=== PATIENT | male | born 1940 | race Caucasian/White ===

== ENCOUNTER 2019-03-28 07:12 | Inpatient (IN) | payer SELFPAY ==
[~2019-03-28] VITALS: Ht 172.7 cm; Wt 66.2 kg
[2019-03-28] MEDS ORDERED: SODIUM CHLORIDE 0.9% 1,000 ML IV ONE (09:23)
[2019-03-28 09:38] LABS: BASOPHILS % 0.3 % (0.0-2.0); EOSINOPHILS % 0.1 % (0.0-5.0); HEMATOCRIT. 29.4 % (42.0-52.0); LYMPHOCYTES % 7.4 % (20.0-50.0); MEAN CORPUSCULAR VOLUME 87.6 fL (80.0-94.0); MEAN PLATELET VOLUME 8.2 fl (7.4-10.4); MONOCYTES % 10.5 % (2.0-8.0); NEUTROPHILS % 81.7 % (40.0-76.0); PLATELET 231 x1000/uL (130-400); RED BLOOD CELL COUNT 3.35 mill/uL (4.7-6.1); RED CELL DISTRIBUTION WIDTH 19.2 % (11.6-14.6)
[2019-03-28 09:45] LABS: CHLORIDE 102 mEq/L (98-107)
[2019-03-28 09:47] LABS: INR 1.1; PARTIAL THROMBOPLASTIN TIME 40.4 sec (23.4-31.0); PROTHROMBIN TIME 10.9 sec (9.6-11.0)
[2019-03-28 09:50] LABS: ETHANOL BLOOD < 10 mg/dL
[2019-03-28 10:04] LABS: CLARITY URINE CLOUDY (CLEAR); COLOR URINE DARK YELLOW (YELLOW); KETONES URINE 1+ (NEGATIVE); LEUKOCYTE ESTERASE URINE TRACE (NEGATIVE); NITRITE URINE POSITIVE (NEGATIVE); OCCULT BLOOD URINE 2+ (NEGATIVE); PH URINE 5.5 (4.5-8.0); PROTEIN URINE 2+ (NEGATIVE); SPECIFIC GRAVITY URINE 1.023 (1.005-1.030)
[2019-03-28 10:17] LABS: *AMPHETAMINES SCREEN URINE NEGATIVE (NEGATIVE); *BARBITURATES SCREEN URINE NEGATIVE (NEGATIVE); *BENZODIAZEPINES SCREEN URINE NEGATIVE (NEGATIVE); *COCAINE SCREEN URINE NEGATIVE (NEGATIVE); METHADONE URINE SCREEN NEGATIVE (NEGATIVE); OPIATES URINE SCREEN NEGATIVE (NEGATIVE); PHENCYCLIDINE URINE SCREEN NEGATIVE (NEGATIVE)
[2019-03-28 10:19] LABS: CANNABINOID URINE SCREEN NEGATIVE (NEGATIVE)
[2019-03-28] MEDS ORDERED: ASPIRIN 325MG EC TABLET PO ONE (11:00)
[2019-03-28] MEDS ORDERED: CEFTRIAXONE 1 G PREMIX 50 ML IV ONE (11:00)
[2019-03-28] MEDS ORDERED: CEFTRIAXONE 1,000 MG in DEXTROSE 5% WATER 50 ML IV SCH (11:30)
[2019-03-28] MEDS ORDERED: POTASSIUM CHLORIDE 20MEQ TABLET SR PO ONE (11:45)
[2019-03-28] MEDS ORDERED: DOCUSATE SODIUM 100MG CAPSULE PO PRN (12:30)
[2019-03-28] MEDS ORDERED: ONDANSETRON HCL 4MG/2ML INJ IV PRN (12:30)
[2019-03-28] MEDS ORDERED: CLONIDINE 0.1MG TABLET PO PRN (12:30)
[2019-03-28 13:00] VITALS: BP 129/79
[2019-03-28 15:30] VITALS: BP 132/62
[2019-03-28 16:00] VITALS: BP 139/68
[2019-03-28] MEDS ORDERED: LEVOFLOXACIN 500MG PREMIX 100 ML IV SCH (16:00)
[2019-03-28] MEDS: SODIUM CHLORIDE 0.9% 1,000 ML IV SCH (16:52)
[2019-03-28] MEDS ORDERED: HYDROCODONE/ACETAMINOPHEN 5/325MG TABLET PO PRN (19:45)
[2019-03-28] MEDS: LORAZEPAM 2MG/ML CPJ IV PRN (19:54)
[2019-03-28 20:00] VITALS: BP 107/62
[2019-03-28] MEDS: METOPROLOL TARTRATE 25MG TABLET PO SCH (21:00)
[2019-03-28] MEDS: MORPHINE SULFATE 2 MG/ML CPJ (NOT FOR IM USE) IV PRN (21:23)
[2019-03-29] VITALS (7 sets, daily range): BP systolic 82–145; BP diastolic 43–77
[2019-03-29] MEDS: LORAZEPAM 2MG/ML CPJ IV PRN (02:35)
[2019-03-29] MEDS: ACETAMINOPHEN 325MG TABLET PO PRN (03:25)
[2019-03-29] MEDS: METOPROLOL TARTRATE 25MG TABLET PO SCH ×3 (03:26→20:44)
[2019-03-29] MEDS: SODIUM CHLORIDE 0.9% 1,000 ML IV SCH (04:17)
[2019-03-29 07:37] LABS: HEMATOCRIT. 29.4 % (42.0-52.0); HEMOGLOBIN. 9.9 g/dL (14.0-18.0); MEAN CORPUSCULAR HEMOGLOBIN 29.8 pg (28.0-32.0); MEAN PLATELET VOLUME 8.6 fl (7.4-10.4); PLATELET 201 x1000/uL (130-400); RED BLOOD CELL COUNT 3.34 mill/uL (4.7-6.1); RED CELL DISTRIBUTION WIDTH 19.7 % (11.6-14.6)
[2019-03-29 07:55] LABS: CHLORIDE 106 mEq/L (98-107)
[2019-03-29] MEDS ORDERED: SODIUM CHLORIDE 0.9% 500 ML IV NR ×2 (09:28→10:00)
[2019-03-29] MEDS: MULTIVITAMINS,THER W-MINERALS TABLET PO SCH (10:42)
[2019-03-29] MEDS: THIAMINE HCL 100MG TABLET PO SCH (10:42)
[2019-03-29] MEDS: FOLIC ACID 1MG TABLET PO SCH (10:42)
[2019-03-29] MEDS: ENOXAPARIN 40MG/0.4ML SYR SUBCUT SCH (10:43)
[2019-03-29] MEDS: MIDODRINE HCL 2.5MG TABLET PO SCH ×2 (12:26→17:38)
[2019-03-29 13:00] LABS: PLATELET ESTIMATE NORMAL
[2019-03-29] MEDS ORDERED: POTASSIUM CHLORIDE INJ 40 MEQ in DEXT 5% WATER 250 ML IV NR (13:30)
[2019-03-29] MEDS: LEVOFLOXACIN 500MG PREMIX 100 ML IV SCH (20:43)
[2019-03-30] VITALS: BP 109/59
[2019-03-30 04:00] VITALS: BP 110/71
[2019-03-30 07:56] LABS: CHLORIDE 110 mEq/L (98-107)
[2019-03-30 08:00] VITALS: BP 122/70
[2019-03-30] MEDS: FOLIC ACID 1MG TABLET PO SCH (09:25)
[2019-03-30] MEDS: ENOXAPARIN 40MG/0.4ML SYR SUBCUT SCH (09:25)
[2019-03-30] MEDS: METOPROLOL TARTRATE 25MG TABLET PO SCH ×2 (09:26→19:56)
[2019-03-30] MEDS: MIDODRINE HCL 2.5MG TABLET PO SCH ×2 (09:26→15:53)
[2019-03-30] MEDS: THIAMINE HCL 100MG TABLET PO SCH (09:26)
[2019-03-30] MEDS: MULTIVITAMINS,THER W-MINERALS TABLET PO SCH (09:26)
[2019-03-30] MEDS: ACETAMINOPHEN 325MG TABLET PO PRN ×2 (11:36→19:58)
[2019-03-30 12:00] VITALS: BP 120/77
[2019-03-30 16:00] VITALS: BP 156/82
[2019-03-30] MEDS: LEVOFLOXACIN 500MG PREMIX 100 ML IV SCH (19:55)
[2019-03-30 20:00] VITALS: BP 160/95
[2019-03-31] VITALS: BP 138/84
[2019-03-31] MEDS: SODIUM CHLORIDE 0.9% 1,000 ML IV SCH ×2 (01:39→10:30)
[2019-03-31 04:00] VITALS: BP 133/81
[2019-03-31 08:30] VITALS: BP 154/89
[2019-03-31] MEDS: THIAMINE HCL 100MG TABLET PO SCH (09:02)
[2019-03-31] MEDS: MIDODRINE HCL 2.5MG TABLET PO SCH ×2 (09:02→09:09)
[2019-03-31] MEDS: METOPROLOL TARTRATE 25MG TABLET PO SCH ×2 (09:02→20:26)
[2019-03-31] MEDS: FOLIC ACID 1MG TABLET PO SCH (09:02)
[2019-03-31] MEDS: MULTIVITAMINS,THER W-MINERALS TABLET PO SCH (09:02)
[2019-03-31] MEDS: ENOXAPARIN 40MG/0.4ML SYR SUBCUT SCH (09:03)
[2019-03-31 12:00] VITALS: BP 145/98
[2019-03-31 16:00] VITALS: BP 136/84
[2019-03-31 20:00] VITALS: BP 161/87
[2019-03-31] MEDS: LEVOFLOXACIN 500MG PREMIX 100 ML IV SCH (20:25)
[2019-04-01] VITALS: BP 133/70
[2019-04-01] MEDS: MORPHINE SULFATE 2 MG/ML CPJ (NOT FOR IM USE) IV PRN (00:14)
[2019-04-01 04:00] VITALS: BP 154/78
[2019-04-01 08:00] VITALS: BP 128/70
[2019-04-01] MEDS: METOPROLOL TARTRATE 25MG TABLET PO SCH ×2 (08:01→20:49)
[2019-04-01] MEDS: THIAMINE HCL 100MG TABLET PO SCH (08:02)
[2019-04-01] MEDS: FOLIC ACID 1MG TABLET PO SCH (08:02)
[2019-04-01] MEDS: ENOXAPARIN 40MG/0.4ML SYR SUBCUT SCH (08:02)
[2019-04-01] MEDS: MULTIVITAMINS,THER W-MINERALS TABLET PO SCH (08:02)
[2019-04-01 12:00] VITALS: BP 120/73
[2019-04-01 20:27] VITALS: BP 127/78
[2019-04-01] MEDS: LEVOFLOXACIN 500MG TABLET PO SCH (20:49)
[2019-04-02] VITALS: BP 132/76
[2019-04-02 04:00] VITALS: BP 145/89
[2019-04-02 08:36] VITALS: BP 156/84
[2019-04-02] MEDS: MULTIVITAMINS,THER W-MINERALS TABLET PO SCH (09:21)
[2019-04-02] MEDS: FOLIC ACID 1MG TABLET PO SCH (09:21)
[2019-04-02] MEDS: THIAMINE HCL 100MG TABLET PO SCH (09:22)
[2019-04-02] MEDS: ENOXAPARIN 40MG/0.4ML SYR SUBCUT SCH (09:23)
[2019-04-02] MEDS: METOPROLOL TARTRATE 25MG TABLET PO SCH ×2 (09:23→21:50)
[2019-04-02 13:02] VITALS: BP 147/86
[2019-04-02 16:21] VITALS: BP 139/69
[2019-04-02 20:45] VITALS: BP 148/83
[2019-04-02] MEDS: LEVOFLOXACIN 500MG TABLET PO SCH (21:49)
[2019-04-03 00:16] VITALS: BP 149/75
[2019-04-03] MEDS: ACETAMINOPHEN 325MG TABLET PO PRN (01:01)
[2019-04-03 04:00] VITALS: BP 144/85
[2019-04-03 08:00] VITALS: BP 154/93
[2019-04-03 10:52] VITALS: BP 138/79
[2019-04-03] MEDS: FOLIC ACID 1MG TABLET PO SCH (10:54)
[2019-04-03] MEDS: THIAMINE HCL 100MG TABLET PO SCH (10:54)
[2019-04-03] MEDS: MULTIVITAMINS,THER W-MINERALS TABLET PO SCH (10:54)
[2019-04-03] MEDS: METOPROLOL TARTRATE 25MG TABLET PO SCH ×2 (10:54→20:33)
[2019-04-03] MEDS: ENOXAPARIN 40MG/0.4ML SYR SUBCUT SCH (10:55)
[2019-04-03 12:00] VITALS: BP 122/71
[2019-04-03 20:00] VITALS: BP 133/86
[2019-04-03] MEDS: LEVOFLOXACIN 500MG TABLET PO SCH (20:32)
[2019-04-04] VITALS: BP 151/86
[2019-04-04 04:00] VITALS: BP 137/87
[2019-04-04 08:00] VITALS: BP 134/72
[2019-04-04] MEDS: METOPROLOL TARTRATE 25MG TABLET PO SCH ×2 (08:25→20:49)
[2019-04-04] MEDS: MULTIVITAMINS,THER W-MINERALS TABLET PO SCH (08:25)
[2019-04-04] MEDS: THIAMINE HCL 100MG TABLET PO SCH (08:25)
[2019-04-04] MEDS: FOLIC ACID 1MG TABLET PO SCH (08:25)
[2019-04-04] MEDS: ENOXAPARIN 40MG/0.4ML SYR SUBCUT SCH (08:46)
[2019-04-04 12:00] VITALS: BP 132/68
[2019-04-04 16:00] VITALS: BP 148/76
[2019-04-04] MEDS: ACETAMINOPHEN 325MG TABLET PO PRN (16:57)
[2019-04-04 20:00] VITALS: BP 144/89
[2019-04-04] MEDS: LEVOFLOXACIN 500MG TABLET PO SCH (20:49)
[2019-04-05] VITALS: BP 139/67
[2019-04-05 04:00] VITALS: BP 140/67
[2019-04-05] MEDS: MULTIVITAMINS,THER W-MINERALS TABLET PO SCH (08:56)
[2019-04-05] MEDS: THIAMINE HCL 100MG TABLET PO SCH (08:56)
[2019-04-05] MEDS: FOLIC ACID 1MG TABLET PO SCH (08:57)
[2019-04-05] MEDS: METOPROLOL TARTRATE 25MG TABLET PO SCH ×2 (08:57→20:23)
[2019-04-05] MEDS: ENOXAPARIN 40MG/0.4ML SYR SUBCUT SCH (08:57)
[2019-04-05 15:55] LABS: FOLIC ACID (FOLATE) SERUM >20 ng/mL ng/mL (>5.38)
[2019-04-05 16:06] LABS: VITAMIN B12 SERUM 367 pg/mL (211-911)
[2019-04-05 20:00] VITALS: BP 111/70
[2019-04-06] VITALS: BP 111/70
[2019-04-06 04:00] VITALS: BP 119/57
[2019-04-06 08:00] VITALS: BP 124/74
[2019-04-06] MEDS: FOLIC ACID 1MG TABLET PO SCH (09:15)
[2019-04-06] MEDS: MULTIVITAMINS,THER W-MINERALS TABLET PO SCH (09:15)
[2019-04-06] MEDS: THIAMINE HCL 100MG TABLET PO SCH (09:15)
[2019-04-06] MEDS: METOPROLOL TARTRATE 25MG TABLET PO SCH ×2 (09:16→21:04)
[2019-04-06] MEDS: ENOXAPARIN 40MG/0.4ML SYR SUBCUT SCH (09:16)
[2019-04-06 12:00] VITALS: BP 126/77
[2019-04-06 16:00] VITALS: BP 127/65
[2019-04-06 20:00] VITALS: BP 133/90
[2019-04-07] VITALS: BP 120/75
[2019-04-07 04:00] VITALS: BP 126/74
[2019-04-07 08:00] VITALS: BP 109/56
[2019-04-07] MEDS: METOPROLOL TARTRATE 25MG TABLET PO SCH ×2 (08:34→21:07)
[2019-04-07] MEDS: THIAMINE HCL 100MG TABLET PO SCH (08:34)
[2019-04-07] MEDS: MULTIVITAMINS,THER W-MINERALS TABLET PO SCH (08:34)
[2019-04-07] MEDS: FOLIC ACID 1MG TABLET PO SCH (08:34)
[2019-04-07] MEDS: ENOXAPARIN 40MG/0.4ML SYR SUBCUT SCH (08:35)
[2019-04-07 12:00] VITALS: BP 103/55
[2019-04-07 16:01] VITALS: BP 113/60
[2019-04-07 20:00] VITALS: BP 127/81
[2019-04-08] VITALS: BP 130/82
[2019-04-08 04:00] VITALS: BP 151/88
[2019-04-08 07:11] LABS: BASOPHILS % 1.1 % (0.0-2.0); EOSINOPHILS % 6.3 % (0.0-5.0); HEMATOCRIT. 30.6 % (42.0-52.0); HEMOGLOBIN. 10.4 g/dL (14.0-18.0); LYMPHOCYTES % 23.9 % (20.0-50.0); MEAN CORPUSCULAR HEMOGLOBIN 29.1 pg (28.0-32.0); MEAN CORPUSCULAR VOLUME 86.1 fL (80.0-94.0); MEAN PLATELET VOLUME 7.1 fl (7.4-10.4); NEUTROPHILS % 63.7 % (40.0-76.0); PLATELET 672 x1000/uL (130-400); RED BLOOD CELL COUNT 3.56 mill/uL (4.7-6.1); RED CELL DISTRIBUTION WIDTH 18.6 % (11.6-14.6)
[2019-04-08 07:24] LABS: CHLORIDE 107 mEq/L (98-107)
[2019-04-08 08:00] VITALS: BP 104/66
[2019-04-08] MEDS: METOPROLOL TARTRATE 25MG TABLET PO SCH ×2 (08:31→21:13)
[2019-04-08] MEDS: THIAMINE HCL 100MG TABLET PO SCH (08:31)
[2019-04-08] MEDS: FOLIC ACID 1MG TABLET PO SCH (08:31)
[2019-04-08] MEDS: MULTIVITAMINS,THER W-MINERALS TABLET PO SCH (08:31)
[2019-04-08] MEDS: ENOXAPARIN 40MG/0.4ML SYR SUBCUT SCH (08:32)
[2019-04-08 12:00] VITALS: BP 118/81
[2019-04-08 16:00] VITALS: BP 138/72
[2019-04-08 20:00] VITALS: BP 112/68
[2019-04-09] VITALS: BP 122/78
[2019-04-09 04:00] VITALS: BP 117/65
[2019-04-09 08:00] VITALS: BP 133/74
[2019-04-09] MEDS: FOLIC ACID 1MG TABLET PO SCH (08:29)
[2019-04-09] MEDS: THIAMINE HCL 100MG TABLET PO SCH (08:29)
[2019-04-09] MEDS: MULTIVITAMINS,THER W-MINERALS TABLET PO SCH (08:29)
[2019-04-09] MEDS: METOPROLOL TARTRATE 25MG TABLET PO SCH ×2 (08:31→20:50)
[2019-04-09] MEDS: ENOXAPARIN 40MG/0.4ML SYR SUBCUT SCH (08:32)
[2019-04-09 12:00] VITALS: BP 125/76
[2019-04-09 16:00] VITALS: BP 97/64
[2019-04-09 20:00] VITALS: BP 106/67
[2019-04-10] VITALS: BP 123/71
[2019-04-10 04:00] VITALS: BP 95/56
[2019-04-10 08:00] VITALS: BP 116/74
[2019-04-10] MEDS: MULTIVITAMINS,THER W-MINERALS TABLET PO SCH (09:25)
[2019-04-10] MEDS: THIAMINE HCL 100MG TABLET PO SCH (09:25)
[2019-04-10] MEDS: METOPROLOL TARTRATE 25MG TABLET PO SCH ×2 (09:26→20:13)
[2019-04-10] MEDS: FOLIC ACID 1MG TABLET PO SCH (09:26)
[2019-04-10] MEDS: ENOXAPARIN 40MG/0.4ML SYR SUBCUT SCH (09:26)
[2019-04-10 12:00] VITALS: BP 119/73
[2019-04-10 16:00] VITALS: BP 118/70
[2019-04-10] MEDS ORDERED: MULT-344 PO (17:23)
[2019-04-10] MEDS ORDERED: METO25TA6 MT (17:23)
[2019-04-10] MEDS ORDERED: THIA50TA11 MT (17:23)
[2019-04-10] MEDS ORDERED: FOLI0.4T2 MT (17:23)
[2019-04-10 20:00] VITALS: BP 114/69
[2019-04-11] VITALS (7 sets, daily range): BP systolic 113–128; BP diastolic 70–83
[2019-04-11] MEDS: ENOXAPARIN 40MG/0.4ML SYR SUBCUT SCH (08:35)
[2019-04-11] MEDS: METOPROLOL TARTRATE 25MG TABLET PO SCH (08:35)
[2019-04-11] MEDS: THIAMINE HCL 100MG TABLET PO SCH (08:35)
[2019-04-11] MEDS: MULTIVITAMINS,THER W-MINERALS TABLET PO SCH (08:35)
[2019-04-11] MEDS: FOLIC ACID 1MG TABLET PO SCH (08:35)
== END 2019-04-11 21:06 | disposition home or self-care (01) | DRG 720 ==
LOC: ER 07:12 → EDBD 11:39 → 7WST 11:39 → ENRESERV 12:12 → 6EST 04-03 13:04
PROVIDERS: ADMIT Hospitalist; ATTEND Hospitalist
DX: A41.59 Other Gram-negative sepsis (principal); G93.41 Metabolic encephalopathy; I95.9 Hypotension, unspecified; N39.0 Urinary tract infection, site not specified; E87.6 Hypokalemia; B96.1 Klebsiella pneumoniae [K. pneumoniae] as the cause of diseases classified elsewhere; R62.7 Adult failure to thrive; Z68.22 Body mass index [BMI] 22.0-22.9, adult; Z59.0 Homelessness
CPT/HCPCS: 36415; 70551; 71045; 80048; 80305; 80320; 81003; 82140; 82607; 82746; 82962; 83735; 83880; 84443; 84484; 87077; 87186; 93005; 93970; 95816; 96365; 97116; 97162; 99285; J0696; J1650; J1956; J2060; J2270; J3480; J7030; J7040; J7060; G0480